=== PATIENT | male | born 1980 | race Caucasian/White ===

== ENCOUNTER 2020-11-11 16:26 | Emergency (ER) | payer MEDICAID ==
[~2020-11-11] VITALS: Ht 165.1 cm; Wt 98.0 kg
[2020-11-11] MEDS ORDERED: MORPHINE SULFATE 4 MG/ML CPJ (NOT FOR IM USE) IV STA (16:54)
[2020-11-11] MEDS ORDERED: SODIUM CHLORIDE 0.9% 1,000 ML IV ONE (17:00)
[2020-11-11 17:18] LABS: HEMATOCRIT. 47.3 % (42.0-52.0); HEMOGLOBIN. 16.4 g/dL (14.0-18.0); MEAN CORPUSCULAR HEMOGLOBIN 31.9 pg (28.0-32.0); MEAN CORPUSCULAR VOLUME 92.1 fL (80.0-94.0); MEAN PLATELET VOLUME 9.8 fl (7.4-10.4); PLATELET 165 x1000/uL (130-400); RED BLOOD CELL COUNT 5.13 mill/uL (4.7-6.1); RED CELL DISTRIBUTION WIDTH 12.9 % (11.6-14.6)
[2020-11-11 17:20] LABS: CHLORIDE 109 mEq/L (98-107)
[2020-11-11 17:40] LABS: PLATELET ESTIMATE NORMAL
[2020-11-11 17:47] LABS: PROTHROMBIN TIME 11.1 sec (9.6-11.0)
[2020-11-11 18:48] VITALS: BP 124/80
[2020-11-11] MEDS ORDERED: IOHEXOL-300 100 ML BOTTLE ONE (23:30)
== END 2020-11-11 20:39 | disposition home or self-care (01) ==
LOC: ER 16:26
DX: K40.20 Bilateral inguinal hernia, without obstruction or gangrene, not specified as recurrent (principal); F17.200 Nicotine dependence, unspecified, uncomplicated; Z88.6 Allergy status to analgesic agent; Z98.890 Other specified postprocedural states
CPT/HCPCS: 36415; 74177; 80053; 83605; 83690; 85025; 85610; 96361; 96374; 99284; J2270; J7030; Q9967; Z7610; 81003

== ENCOUNTER 2024-01-15 13:10 | Emergency (ER) | payer MEDICAID, OTHER ==
[~2024-01-15] VITALS: Ht 167.6 cm; Wt 75.0 kg
[2024-01-15 13:16] VITALS: O2SAT 98
[2024-01-15] MEDS: TETANUS, DIPHTHERIA, PERTUSSIS VAC/PF 0.5ML (>10YR OLD) IM ONE (16:12)
[2024-01-15] MEDS: BACITRACIN ZINC OINT UDPKT TOP ONE (16:12)
[2024-01-15] MEDS: LIDOCAINE HCL/PF 1% 10 MG/ML 5ML VIAL INFIL ONE (16:12)
[2024-01-15 16:14] VITALS: BP 133/80; PULSE 68; RESP 18; TEMP 98.1
== END 2024-01-15 16:14 | disposition home or self-care (01) ==
LOC: ER 13:10
DX: S81.011A Laceration without foreign body, right knee, initial encounter (principal); Z88.6 Allergy status to analgesic agent; Z90.49 Acquired absence of other specified parts of digestive tract; W31.9XXA Contact with unspecified machinery, initial encounter; Y93.89 Activity, other specified; Y92.89 Other specified places as the place of occurrence of the external cause; Y99.8 Other external cause status
CPT/HCPCS: 12002; 73562; 99283